=== PATIENT | male | born 1985 | race Caucasian/White ===

== ENCOUNTER 2023-04-16 23:36 | Emergency (ER) | payer BC ==
[2023-04-17 00:16] VITALS: TEMP 97
[2023-04-17] MEDS ORDERED: TORAdol 30 mg Injection ONE (00:40)
[2023-04-17] MEDS ORDERED: Norflex 60 MG/2 ML ONE (00:40)
[2023-04-17] MEDS: TORAdol 30 mg Injection IM ONE (00:44)
[2023-04-17] MEDS: Norflex 60 MG/2 ML IM ONE (00:45)
--- NOTE | 2023-04-17 00:51 | ERPHSYRPT ---
- History of Present Illness Time Seen by Provider: 04/17/23 00:26 Source: patient Exam Limitations: no limitations Patient Subjective Stated Complaint: pt injured back in August of last years and 2 days ago pt states he sat down and his back popped and started hurting again Triage Nursing Assessment: pt ambulatory to bed by self with steady gait, pt alert and oriented x3, skin pink warm and clammy, pt c/o middle back pain that started 2 days ago, pt injured back in August of 2022 and pt states it started hurting again after he went to sit down and felt a "pop", pt denies any dizziness or numbness or tingling currently, pt rating sharp pain 3/10 Physician History: 37-year-old male with history of chronic mid back pain with a thorough evaluation done currently scheduled to see outpatient neurosurgery presented in the ER with worsening back pain for almost 5 days. Patient is unable to recall any triggering event. Pain is in the mid back with some radiation to the lower back and sometimes in the right lower extremity without any numbness tingling or weakness of extremities. No loss of bowel or bladder control. Denies any difficulty breathing. Denies any fall or trauma. Patient has taken Advil with no significant relief. Allergies/Adverse Reactions: No Known Drug Allergies Allergy (Verified 04/17/23 00:08) Hx Tetanus, Diphtheria Vaccination/Date Given: Yes Hx Influenza Vaccination/Date Given: No Hx Pneumococcal Vaccination/Date Given: No Immunizations Up to Date: No Travel Risk - International Travel Have you traveled outside of the country in past 3 weeks: No - Coronavirus Screening Are you exhibiting any of the following symptoms?: No Close contact with a COVID-19 positive Pt in past 14-21 Days: No - Vaccine Status Have you recieved a Covid-19 vaccination: No - Review of Systems Constitutional: No Symptoms Eyes: No Symptoms Ears, Nose, & Throat: No Symptoms Respiratory: No Symptoms Cardiac: No Symptoms Abdominal/Gastrointestinal: No Symptoms Genitourinary Symptoms: No Symptoms Musculoskeletal: Back Pain Skin: No Symptoms Neurological: No Symptoms Hematologic/Lymphatic: No Symptoms Immunological/Allergic: No Symptoms - Past Medical History Pertinent Past Medical History: Yes Neurological History: No Pertinent History ENT History: No Pertinent History Cardiac History: No Pertinent History Respiratory History: Bronchitis Endocrine Medical History: No Pertinent History Musculoskeletal History: No Pertinent History GI Medical History: No Pertinent History History: No Pertinent History Psycho-Social History: No Pertinent History Male Reproductive Disorders: No Pertinent History - Past Surgical History Past Surgical History: No Neuro Surgical History: No Pertinent History Cardiac: No Pertinent History Respiratory: No Pertinent History Gastrointestinal: No Pertinent History Genitourinary: No Pertinent History Musculoskeletal: No Pertinent History Male Surgical History: No Pertinent History - Social History Smoking Status: Former smoker Exposure to second hand smoke: No Drug Use: none Patient Lives Alone: Yes - Nursing Vital Signs Nursing Vital Signs: Initial Vital Signs Temperature 97.0 F 04/17/23 00:10 Pulse Rate 94 H 04/17/23 00:10 Respiratory Rate 18 04/17/23 00:10 Blood Pressure 141/80 04/17/23 00:10 O2 Sat by Pulse Oximetry 97 04/17/23 00:10 Pain Scale Pain Intensity 3 - Physical Exam General Appearance: no apparent distress, alert Eye Exam: PERRL/EOMI Ears, Nose, Throat Exam: normal ENT inspection Neck Exam: normal inspection, non-tender, supple, full range of motion Respiratory Exam: normal breath sounds, lungs clear Cardiovascular Exam: regular rate/rhythm, normal heart sounds Gastrointestinal Exam: soft, normal bowel sounds, No tenderness Back Exam: normal inspection, normal range of motion, muscle spasm (Lower thoracic to upper lumbar paraspinal area), No vertebral tenderness Extremity Exam: normal inspection, normal range of motion Neurologic Exam: alert, oriented x 3, cooperative Skin Exam: normal color SpO2 Interpretation: normal SpO2: 97 O2 Delivery: Room Air Ordered Tests: Medication Summary Discontinued Medications Generic Name Dose Route Start Last Admin Trade Name Freq PRN Reason Stop Dose Admin Ketorolac Tromethamine 30 mg 04/17/23 00:39 Ketorolac Tromethamine 30 Mg/Ml Inj IM 04/17/23 00:40 STAT ONE Ketorolac Tromethamine Confirm 04/17/23 00:40 Ketorolac Tromethamine 30 Mg/Ml Inj Administered 04/17/23 00:41 Dose 30 mg .ROUTE .STK-MED ONE Orphenadrine Citrate 60 mg 04/17/23 00:39 Orphenadrine Citrate 60 Mg/2 Ml Vial IM 04/17/23 00:40 STAT ONE Orphenadrine Citrate Confirm 04/17/23 00:40 Orphenadrine Citrate 60 Mg/2 Ml Vial Administered 04/17/23 00:41 Dose 60 mg .ROUTE .STK-MED ONE - Progress Progress: improved, re-examined Progress Note: 04/17/23 01:50 37-year-old is evaluated for mid to lower back pain with history of chronic back pain. Patient has negative neuro exam in lower extremities. No cauda equina symptoms. Pain is more in the paraspinal area. Given symptomatic treatment with Toradol and Norflex, on reevaluation feeling better. I do not think patient needs imaging. Recommended keeping outpatient appointment. Will continue with NSAIDs and muscle relaxants to go home. Discussed signs symptoms of worsening needing return to ER which he seems understanding. Stable for discharge. Medical Desision Making - Diagnostic Testing Diagnostic test were ordered, analyzed, and reviewed by me: No - Risk of complications The pt has a mod risk of morbidity or mortality based on: Need for prescription drug management - Departure Departure Disposition: Home Clinical Impression: Strain of back Condition: Stable Critical Care Time: No Referrals: DOCTOR,NO FAMILY [Primary Care Provider] - Follow up with PCP 1 day (Your primary care) Instructions: Back Muscle Strain (DC) Additional Instructions: Take Tylenol/diclofenac as needed. Follow-up with your primary care and keep appointment with neurosurgery. Return to ER for worsening pain or if having numbness tingling weakness of lower extremities, loss of bowel or bladder control. Prescriptions: Cyclobenzaprine HCl 10 mg [Flexeril 10 MG] 10 mg PO TID #20 tablet Diclofenac Sodium 50 mg PO TID PRN 7 Days #20 tab PRN Reason: Pain
[2023-04-17 01:08] VITALS: RESP 17
[2023-04-17 01:28] VITALS: BP 119/73; PULSE 74; O2SAT 95
== END 2023-04-17 01:36 | disposition home or self-care (01) ==
LOC: ED 23:36
DX: M54.50 Low back pain, unspecified (principal)
CPT/HCPCS: 96372; 99283; J1885; J2360